=== PATIENT | female | born 1970 | race Caucasian/White ===

== ENCOUNTER 2018-12-25 01:16 | Outpatient (CLI) | payer BC, SELFPAY ==
--- NOTE | 2018-12-25 08:19 | DI.MAMMO_ITS ---
SYMPTOM/DIAGNOSIS: SCREENING, Z12.39 MAMMOGRAMS: Mammograms were interpreted according to the usual protocol including computer analysis with CAD system, tomosynthesis and C view imaging. Comparison is made with prior examinations. Breast density, Category B. No suspicious masses or microcalcifications are seen. There is no definite evidence of malignancy. IMPRESSION: Negative mammogram. Routine screening is recommended. Category 1. MQSA ASSESSMENT OF FINDINGS: Negative. Category 1. Patient will receive a letter notifying them of these results. BI-RADS category B. There are scattered areas of fibroglandular density.
== END 2018-12-25 01:36 ==
PROVIDERS: PCP Family Medicine; Visit Provider Nurse Practitioner
DX: Z12.31 Encounter for screening mammogram for malignant neoplasm of breast (principal)
CPT/HCPCS: 77063; 77067

== ENCOUNTER 2019-04-07 05:59 | Day surgery (SDC) | payer BC, SELFPAY ==
[2019-04-07 06:24] VITALS: BP 114/76; PULSE 84; RESP 16; TEMP 36.4; O2SAT 98
[2019-04-07] MEDS: Lactated Ringers 1,000 ML 80 ML IV (06:30)
--- NOTE | 2019-04-07 06:49 | W.COLOREPORT ---
Date of service: 04/07/19 Time of Service: 07:33 Colonoscopy Report Date of procedure: 04/07/19 Pre-op diagnosis general: Colon Cancer Screening, Family history Post-op diagnosis procedure note: same Procedure: Colonoscopy Surgeon: Linh Luis Anesthesia proc note operative: other (General/ ASA 2/ Sandy Cifuentes, YESENIA) Pathology: none sent Complications: None Disposition: same day Indications: Mrs. Dee is a pleasant 48-year-old female who was seen in the office for a screening colonoscopy. This will be her first colonoscopy. She also has a family history and her grandfather who had colon cancer in his 70s. No colon cancer in a first-degree relative. Risks, benefits and complications have been reviewed. Complications include but are not limited to bleeding, pain, perforation, missed small lesion/polyp, sore throat, aspiration and adverse reaction to the medications. Questions were entertained and answered to their satisfaction and they wished to proceed. No guarantees were given or implied. Prep: Miralax/Dulcolax Procedure Start Time: :33 Procedure End Time: :51 Retraction Time: 12 minutes Findings: Normal colon Procedure Description: After informed consent was obtained the patient was taken to the procedure room and placed in a left decubitous position. Monitors were applied and a time out was done. The patients name, date of , procedure, allergies to medications and metal in their body was reviewed. The patient was then sedated. Once sedated and comfortable a rectal exam was done. External exam was normal. Internal exam revealed a normal sphincter tone and no palpable masses. The scope was then introduced and retro-flexed. No internal hemorrhoids were identified. The scope was then advanced to the cecum without difficulty. The TI and appendiceal orifice were identified. The prep was good. The scope was then slowly retracted over 12 minutes back into the rectum. There were no polyps and no diverticula. The scope was removed and the patient was woken up and taken back to Same day surgery in stable condition. The patient tolerated the procedure well and there were no immediate complications. Follow up: The patient should follow up in 10 years unless they develop changes in bowel habits or other new gastrointestinal complaints.
--- NOTE | 2019-04-07 06:51 | W.PM.DSUDISC ---
Discharge Plan Disposition Patient Disposition: HOME Condition: Good Discharge Details Reason For Visit: Colon Cancer Screening Attending Provider: Linh Luis Primary Care Provider: Alexandro Howe Home Meds and New Rx's Prescriptions: Continued albuterol sulfate [Proventil HFA] 90 mcg/actuation HFA aerosol inhaler 2 puff IH Q6H PRNRF: 0 multivitamin [Multiple Vitamins] 1 EACH tablet 1 ea PO DAILY RF: 0 naproxen 250 MG tablet 250 mg PO DAILY RF: 0 Discontinued polyethylene glycol 3350 17 gram/dose powder 238 g PO ONCE Qty: 238 RF: 0 bisacodyl [Dulcolax (bisacodyl)] 5 mg tablet,delayed release (DR/EC) 5 mg PO ONCE Qty: 4 RF: 0 Discharge Instructions Instructions: Colonoscopy (GEN) Additional Instructions: Findings: Normal colon Follow up: 10 years Please call if you develop: fevers >101.5 Nausea or Vomiting Abdominal pain that is not transient DAY SURGERY UNIT POST COLONOSCOPY INSTRUCTIONS 1. Because there will be medication in your system for the next 24 hours, you may feel a little sleepy. Your coordination will be affected. Therefore: a. Do not drive or operate dangerous equipment for 24 hours. b. Do not drink alcohol beverages for 24 hours (not even beer). c. Plan to go home and rest for the day. 2. Generally there are no restrictions on your activity after a day or so has gone by, but you may feel a bit fatigued for a few days. 3 After you arrive home you may have a light meal and return to a normal diet as you can tolerate it without feeling sick to your stomach. 4. After surgery, you may feel pain or discomfort. This should be only transient, but if it persists please contact your doctor. 5. If there are any questions regarding the findings of your procedure, please feel free to contact your doctor. 6. If you are unable to contact your doctor with a problem, contact the hospital at [phone]. 7. Continue all your regular medications unless directed otherwise. I understand the above instructions and have no questions. Signature of Patient or Responsible Adult Escort Date/Time Name of Responsible Adult Escort Signature of Nurse Date/Time Activity:: Activity as Tolerated Diet:: As Tolerated Discharge Orders Discharge Orders: Discharge Order (Routine); Ordered 04/07/19 Ordered By: Linh Luis DS: Diagnosis Discharge Diagnosis (1) S/P colonoscopy:
[2019-04-07] MEDS: Lidocaine 2% Pres-Free 5 ML VIAL (07:25)
[2019-04-07] MEDS: Glycopyrrolate 0.2 MG/1 ML VIAL (07:30)
[2019-04-07] MEDS: Midazolam 2 MG/2 ML VIAL (07:30)
[2019-04-07] MEDS: PROPOFOL 500 MG/50 ML BTL 30 MG (07:30)
[2019-04-07 08:40] VITALS: BP 123/72; PULSE 70; RESP 16; TEMP 36.2; O2SAT 100
== END 2019-04-07 09:04 | disposition home or self-care (01) ==
PROVIDERS: PCP Family Medicine; Visit Provider Surgery
PROC: 0DJD8ZZ Inspection of Lower Intestinal Tract, Via Natural or Artificial Opening Endoscopic (ICD-10-PCS; CPT 45378; principal; 2019-04-07 07:30)
DX: Z12.11 Encounter for screening for malignant neoplasm of colon (principal); Z80.0 Family history of malignant neoplasm of digestive organs
CPT/HCPCS: 45378; J2250

== ENCOUNTER 2019-06-18 09:02 | Outpatient (REF) | payer BC, SELFPAY ==
[2019-06-18 13:11] LABS: Calculated LDL 145 mg/dL; Cholesterol 220 mg/dL (50-200); Glucose 146 mg/dL (70-100); HDL Cholesterol 48 mg/dL (40-60); Triglyceride 137 mg/dL (30-150)
== END 2019-06-18 09:22 ==
LOC: NCHCN 09:02
PROVIDERS: PCP Family Medicine; Visit Provider Nurse Practitioner
DX: R73.09 Other abnormal glucose (principal)
CPT/HCPCS: 80061; 82947

== ENCOUNTER 2021-02-27 18:15 | Emergency (ER) | payer BC, SELFPAY ==
--- NOTE | 2021-02-27 18:15 | DI.RAD_ITS ---
Exam(s) XR FOOT RT COMPLETE EXAM: XR FOOT RT COMPLETE CLINICAL HISTORY: Crush injury R/O Fracture. TECHNIQUE: 2D digital imaging was performed. COMPARISON: No exams were available for comparison FINDINGS: BONES: No acute fracture is present. No bony destructive lesion is seen. JOINTS: No dislocation present. SOFT TISSUE: Swelling over the metatarsal region. IMPRESSION: No evidence of fracture. DATA REPOSITORY: RADIATION DOSE DELIVERED:
[2021-02-27 18:19] VITALS: BP 148/84; PULSE 76; TEMP 36.9; O2SAT 96
--- NOTE | 2021-02-27 18:26 | W.ED.GENAD ---
Discharge Plan Disposition Patient Disposition: HOME Condition: Stable Discharge Details Clinical Impression: Crush injury of right foot Primary Care Provider: Alexandro Howe ED Provider: Genny Candelaria Home Meds and New Rx's Prescriptions: No Action albuterol sulfate [Proventil HFA] 90 mcg/actuation HFA aerosol inhaler 2 puff IH Q6H PRNRF: 0 multivitamin [Multiple Vitamins] 1 EACH tablet 1 ea PO DAILY RF: 0 naproxen 250 MG tablet 250 mg PO DAILY RF: 0 Discharge Instructions Instructions: Crush Injury (ED) Additional Instructions: At this time x-ray shows no obvious fracture. However, they do recommend repeat x-ray in 7 to 10 days to completely rule this out. In the meantime rest, ice, compression, elevation. Wear the walking boot for comfort. Please take Tylenol or Ibuprofen with food every 4-6 hours as needed for pain and swelling. Please follow-up with orthopedic [facility] clinic in 7 to 10 days. Referrals: Seth Schmitz MD [ [facility] STAFF PHYSICIAN] - Alexandro Howe [Primary Care Provider] - Discharge Data Discharge Date/Time-TO BE ENTERED AT DEPARTURE: 02/27/21 19:50 Medical Decision Making 50-year-old female presents to the ER status post dropping a approximately 15 pound metal railroad tie onto her foot 1 hour prior to arrival. She has soft tissue swelling noted to the dorsum of her right foot. A small superficial abrasion noted also to the top of her foot. Distal cap refill less than 2 seconds sensation movement intact. No other signs of obvious deformity. Imaging protocol: XR Right foot. Views: 3 or more views. COMPARISON: No relevant prior studies available. FINDINGS: Bones/joints: Normal, without evidence of acute osseous injury. Incidental note is made of possible small sclerotic bone island within the base of the 4th middle phalanx. Soft tissues: There is soft tissue edema overlying the midfoot as seen on lateral view. IMPRESSION: 1. No acute osseous injury. Should patient's symptoms persist, recommend follow-up imaging in 7- 10 days to evaluate for possible occult fracture. 2. Soft tissue edema overlying the metatarsal row as seen on lateral view. Thank you for allowing us to participate in the care of your patient. Dictated and Authenticated by: Fabrizio Gomes MD Patient was placed in a walking boot wound care performed by staff home therapy rn. Discussed rest ice compression elevation and follow-up with orthopedics, discussed return instructions including to return for any problems with circulation pain not relieved by Tylenol or ibuprofen or any concerns. Patient verbalized understanding HPI General Mode of arrival: wheelchair. Date/Time Provider Initiated Documentation: 02/27/21 18:17. Limitations to Documentation: no limitations. Information obtained by: patient. HPI Narrative: 50-year-old female presents to the ER status post dropping a approximately 15 pound metal railroad tie onto her foot 1 hour prior to arrival. She has soft tissue swelling noted to the dorsum of her right foot. A small superficial abrasion noted also to the top of her foot. Distal cap refill less than 2 seconds sensation movement intact. No other signs of obvious deformity. Related Data Home Medications Medication Instructions Recorded Confirmed multivitamin [Multiple Vitamins] 1 ea PO DAILY 02/05/13 02/27/21 naproxen 250 mg PO DAILY tab-cap 02/05/13 02/27/21 albuterol sulfate 90 mcg/actuation 2 puff IH Q6H PRN gm 01/10/19 02/27/21 aerosol inhaler Allergies Allergy/AdvReac Type Severity Reaction Status Date / Time kiwi Allergy Unknown throat Unverified 02/27/21 18:22 gets scratchy diphenhydramine HCl AdvReac Severe Visual Unverified 02/27/21 18:22 [From Benadryl] Disturbances phenytoin sodium AdvReac Intermediate Nausea Unverified 02/27/21 18:22 [From Dilantin] phenytoin sodium extended AdvReac Intermediate Nausea Unverified 02/27/21 18:22 [From Dilantin] SEASONAL ALLERGENS Allergy Mild Wheezing Uncoded 02/27/21 18:22 General Stated Complaint: Orthopedic ALE: 4 Review of Systems All systems reviewed & are unremarkable except as noted in HPI and below Musculoskeletal Musculoskeletal: Reports as per HPI, Reports abnormal gait (Slight limp pain to foot with walking) and Reports joint swelling (Right foot swelling and abrasion noted to the dorsum. Reports pain with) Neurologic Neurologic: Reports abnormal gait (Slight limp pain to foot with walking) [facility] Medical History (Updated 02/27/21 @ 19:18 by Genny Candelaria) Asthma At risk for sleep apnea GERD (gastroesophageal reflux disease) Migraine Obesity Scoliosis Syncope last fainting spell was 3 monthes ago, gets buzzing sound as warning. Surgical History (Updated 04/07/19 @ 06:51 by Linh Luis MD) History of section History of colonoscopy S/P colonoscopy (~04/07/19) Family History Paternal Grandfather Colon cancer Other Cancer Social History (Updated 03/17/19 @ 18:17 by MADISON Lucio) Smoking/Tobacco Use Status: Former Tobacco Use Quit Date: 03/27/91 Smoking risk assessment performed?: Yes Alcohol Intake: current Alcohol Intake frequency: a few times a week Alcohol type: wine Drug use: Never Substance use type: does not use Do you feel safe at home: Yes Do you feel safe in your relationship?: Yes Course Vital Signs Vital signs: Vital Signs Temperature 36.9 C 02/27/21 18:19 Pulse 76 02/27/21 18:19 Blood Pressure 148/84 H 02/27/21 18:19 Pulse Oximetry 96 02/27/21 18:19 Temperature 36.9 C 02/27/21 18:19 Temperature Source Temporal Artery Scan 02/27/21 18:19 Pulse 76 02/27/21 18:19 Respiratory Effort Non-Labored 02/27/21 18:21 Blood Pressure 148/84 H 02/27/21 18:19 Blood Pressure Position Sitting 02/27/21 18:19 Pulse Oximetry 96 02/27/21 18:19 Oxygen Delivery Method Room Air 02/27/21 18:19 Oxygen Flow Rate 0 02/27/21 18:19 Pain Level 4 02/27/21 18:23
[2021-02-27] MEDS: Ibuprofen 800 MG TAB PO (18:41)
--- NOTE | 2021-02-27 19:10 | NUR.NOTE ---
Assumed care of pt. Report from [place]. Right foot wound cleansed with hibiclense and water. bacitracin and dsd applied.
--- NOTE | 2021-02-27 19:11 | DI.VRAD_ITS ---
PROCEDURE INFORMATION: Exam: XR Right Foot Exam date and time: 02/27/2021 6:27 PM Age: 50 years old Clinical indication: Injury or trauma; Other: Heavy object landed on foot; Crushing; Right; Injury date: 02/27/21; Injury details: Crush injury, R/O FX TECHNIQUE: Imaging protocol: XR Right foot. Views: 3 or more views. COMPARISON: No relevant prior studies available. FINDINGS: Bones/joints: Normal, without evidence of acute osseous injury. Incidental note is made of possible small sclerotic bone island within the base of the 4th middle phalanx. Soft tissues: There is soft tissue edema overlying the midfoot as seen on lateral view. IMPRESSION: 1. No acute osseous injury. Should patient's symptoms persist, recommend follow-up imaging in 7-10 days to evaluate for possible occult fracture. 2. Soft tissue edema overlying the metatarsal row as seen on lateral view. Dictated and Authenticated by: Fabrizio Gomes MD. Ordering:CHLOE Royal MD
== END 2021-02-27 19:50 | disposition home or self-care (01) ==
PROVIDERS: Emergency Provider Registered Nurse Emergency; PCP Family Medicine
DX: S97.81XA Crushing injury of right foot, initial encounter (principal); W20.8XXA Other cause of strike by thrown, projected or falling object, initial encounter
CPT/HCPCS: 29515; 99283; 73630

== ENCOUNTER 2021-10-26 01:06 | Outpatient (CLI) | payer BC, SELFPAY ==
--- NOTE | 2021-10-26 | DI.MAMMO_ITS ---
Exam(s) MAMMO SCREENING EXAM: MAMMO SCREENING CLINICAL HISTORY: SCREENING, Z12.39 TECHNIQUE: Mammograms were interpreted according to the usual protocol including computer analysis w Prolify CAD system, tomosynthesis and C-view imaging. COMPARISON: FINDINGS: The breasts are of moderate density with fairly symmetrical distribution of fibroglandular tissue. N o dominant mass or clumped microcalcification is identified in either breast. The current examinatio n is compared with previous examinations including December 2018 and there has been no gross interval walters ge in appearance in comparison with the prior studies. IMPRESSION: No specific evidence of malignancy at this time. Routine screening examinations are suggested at yea rly intervals in this age group according to the ACS ACR guidelines. BI-RADS Category 1 - Negative Breast Density - Category B - Scattered areas of fibroglandular density
== END 2021-10-26 01:26 ==
PROVIDERS: PCP Family Medicine; Visit Provider Nurse Practitioner
DX: Z12.31 Encounter for screening mammogram for malignant neoplasm of breast (principal)
CPT/HCPCS: 77063; 77067

== ENCOUNTER 2022-08-01 03:49 | Outpatient (CLI) | payer OTHER, SELFPAY ==
[2022-08-01] MEDS: Albuterol HFA 18 GM 200 PUFF INH IH (13:44)
[2022-08-01] MEDS: Inhaler, Assist Device 1 EACH MC (13:45)
--- NOTE | 2022-08-01 16:28 | W.PFT ---
Date of service: 08/01/22 Time of Service: 12:56 Pulmonary Function Test Result Requesting Provider Judith Valdez Indications: Asthma Interpretation Spirometry: There is no airflow limitation. There is no significant bronchodilator response. Lung Volumes: Normal lung volumes Diffusion Capacity: Normal diffusion Airway Pressure: Normal airways resistance. Impression Normal pulmonary function testing Clinical Correlation therefore is recommended.
== END 2022-08-01 03:50 | disposition home or self-care (01) ==
LOC: RT 03:49
PROVIDERS: PCP Family Medicine; Visit Provider Nurse Practitioner Family
DX: J45.21 Mild intermittent asthma with (acute) exacerbation (principal)
CPT/HCPCS: 94060; 94726; 94729

== ENCOUNTER 2022-08-09 14:23 | Outpatient (REF) | payer OTHER, SELFPAY ==
[2022-08-09 15:09] LABS: Hemoglobin A1C 6.2 % (<5.7)
[2022-08-09 15:10] LABS: Anion Gap 8.4 mmol/L (3-11); BUN 22 mg/dL (7-18); CO2 28.6 mmol/L (21.0-32.0); CREATININE 0.7 mg/dL (0.55-1.02); Calcium 9.2 mg/dL (8.5-10.1); Calculated LDL 150 mg/dL (<100); Chloride 103 mmol/L (98-107); Cholesterol 255 mg/dL (<200); Estimated GFR 103.35 (mL/min/1.73m2); Glucose 118 mg/dL (74-106); HDL Cholesterol 49 mg/dL (40-60); Potassium 4.4 mmol/L (3.5-5.1); Sodium 140 mmol/L (136-145); Triglyceride 284 mg/dL (<150)
== END 2022-08-09 14:24 | disposition home or self-care (01) ==
LOC: NCHCN 14:23
PROVIDERS: PCP Family Medicine; Visit Provider Nurse Practitioner Family
DX: R73.03 Prediabetes (principal); J45.20 Mild intermittent asthma, uncomplicated; Z13.89 Encounter for screening for other disorder; Z86.69 Personal history of other diseases of the nervous system and sense organs
CPT/HCPCS: 80048; 80061; 83036

== ENCOUNTER 2023-09-26 17:35 | Outpatient (REF) | payer OTHER, SELFPAY ==
[2023-09-26 19:54] LABS: ALT 122 U/L (14-59); AST 55 U/L (15-37); Alkaline Phosphatase 91 U/L (46-116); Anion Gap 7.3 mmol/L (3-11); BUN 15 mg/dL (7-18); Bilirubin, Total 0.4 mg/dL (0.2-1.0); CO2 29.7 mmol/L (21.0-32.0); CREATININE 0.9 mg/dL (0.55-1.02); Calcium 9.7 mg/dL (8.5-10.1); Calculated LDL 157 mg/dL (<100); Chloride 102 mmol/L (98-107); Cholesterol 233 mg/dL (<200); Estimated GFR 75.97 (mL/min/1.73m2); Glucose 149 mg/dL (74-106); HDL Cholesterol 53 mg/dL (40-60); Potassium 4.2 mmol/L (3.5-5.1); Sodium 139 mmol/L (136-145); Total Protein 8.4 g/dL (6.4-8.2); Triglyceride 117 mg/dL (<150)
[2023-09-26 19:55] LABS: Hemoglobin A1C 6.1 % (<5.7)
== END 2023-09-26 17:36 | disposition home or self-care (01) ==
LOC: NCHCN 17:35
PROVIDERS: PCP Family Medicine; Visit Provider Nurse Practitioner Family
DX: E78.5 Hyperlipidemia, unspecified (principal); R73.03 Prediabetes
CPT/HCPCS: 80053; 80061; 83036

== ENCOUNTER → 2023-10-15 04:24 | Outpatient (CLI) | payer OTHER, SELFPAY ==
--- NOTE | 2023-10-15 12:34 | DI.MAMMO_ITS ---
Exam(s) MAMMO SCREENING EXAM: MAMMO SCREENING CLINICAL HISTORY: SCREENING,Z12.31 TECHNIQUE: Bilateral full field digital CC and MLO mammographic images were obtained with 3D tomosyn thesis and utilizing computer aided detection (CAD). COMPARISON: Available for comparison. FINDINGS: Masses/Architectural Distortion: None seen. Microcalcifications: No suspicious pleomorphic-type are seen. Skin Thickening/Nipple Retraction: None. IMPRESSION: 1. No significant interval change with no specific features of malignancy noted. 2. Unless there is more urgent need, screening mammography is recommended, as per [place] guidelines. BI-RADS Category 1 - Negative Breast Density - Category B - Scattered areas of fibroglandular density Breast density category C or D implies that the patient has dense breast tissue. Dense breast tissue is very common and is not abnormal but dense breast tissue can make it harder to find cancer on a ma mmogram. Also, dense breast tissue may increase their breast cancer risk. This information about the result of the mammogram report was provided to the patient to raise their awareness. Use this report when you speak with the patient about their risks for breast cancer, which includes their family hist ory. At that time, you may recommend for more screening tests (Ultrasound or MRI) as they might be us eful based on their risk. A negative radiographic report should not delay biopsy if a dominant or clinically suspicious mass is present. Up to ten percent of cancers are not identified on mammography. A negative report may reinforce clinical impression. Adenosis and dense breasts may obscure an underlying neoplasm. False positive reports average 6 to 10%. Patient will receive a letter notifying them of these results.
== END ==
PROVIDERS: PCP Family Medicine; Visit Provider Nurse Practitioner Family
DX: Z12.31 Encounter for screening mammogram for malignant neoplasm of breast (principal)
CPT/HCPCS: 77063; 77067

== ENCOUNTER 2024-08-02 16:19 | Emergency (ER) | payer OTHER, SELFPAY ==
[2024-08-02] VITALS (26 sets, daily range): BP systolic 112–168; BP diastolic 59–115; PULSE 86–115; RESP 18; TEMP 36.8; O2SAT 92–98
[2024-08-02] MEDS: FAMOTIDINE 20 MG/50 ML BAG 204 MG (16:32)
[2024-08-02] MEDS: Dexamethasone 10 MG/ML VIAL (16:32)
[2024-08-02] MEDS: hydrOXYzine 25 MG/ML VIAL IM (16:36)
--- NOTE | 2024-08-02 17:30 | DI.RAD_ITS ---
Exam(s) XR CHEST 2V PA LATERAL EXAM: XR CHEST 2V PA LATERAL CLINICAL HISTORY: persistent cough TECHNIQUE: 2D digital imaging was performed. Two views. COMPARISON: No exams were available for comparison FINDINGS: HEART: Normal size. Aorta: Not dilated. PULMONARY VASCULATURE: Normal. MEDIASTINUM: Unremarkable. LUNGS: Clear. PLEURAL SPACE: No pleural effusion or pneumothorax. BONE:Unremarkable for age. SOFT TISSUES: Unremarkable. IMPRESSION: No acute abnormality. DATA REPOSITORY: RADIATION DOSE DELIVERED:
[2024-08-02] MEDS: hydrOXYzine HCL 25 MG TAB PO (18:38)
[2024-08-02] MEDS: EPINEPHrine 0.3 MG KIT IM (18:38)
--- NOTE | 2024-08-02 20:44 | ED.GENADUL_ITS ---
Discharge Plan Disposition Patient Disposition: Home Condition: Stable Discharge Details Clinical Impression: Allergic reaction, Chronic cough, Asthma Primary Care Provider: JOSUE NASH ED Provider: Guera Haas Home Meds and New Rx's Prescriptions: New Asmanex HFA 100 mcg/actuation HFA aerosol inhaler 2 puff inhalation BID Qty: 13 2RF hydroxyzine HCl 25 mg tablet 25 mg PO BID PRNQty: 10 0RF prednisone 20 mg tablet 40 mg PO ONCE Qty: 10 0RF albuterol sulfate [Ventolin HFA] 90 mcg/actuation HFA aerosol inhaler 2 puff inhalation Q6H PRNQty: 8.5 2RF Continued albuterol sulfate [Proventil HFA] 90 mcg/actuation HFA aerosol inhaler 2 puff IH Q6H PRN multivitamin [Multiple Vitamins] 1 EACH tablet 1 ea PO DAILY naproxen 250 MG tablet 250 mg PO DAILY Discharge Instructions Instructions: How to use an epinephrine autoinjector, Anaphylaxis - Discharge instructions Additional Instructions: You are seen today for an allergic reaction, you are likely allergic to shellfish Continue on the prednisone, take this tomorrow Continue on the hydroxyzine you may take this twice a day as needed for rash and itch, this will likely make you tired and it is in the same class as Benadryl I am also giving you meds for asthma moderate persistent, please use your new albuterol inhaler 2 puffs every 4-6 hours with spacer Use your new Flovent 2 puffs twice a day with spacer Take the steroid for the next 5 days I placed a referral to pulmonology for follow-up Please return earlier should you have new or worsening complaints Refer to anaphylaxis information, I do not feel like you are having anaphylaxis but should you develop difficulty swallowing shortness of breath associated with nausea and vomiting, please use your EpiPen immediately and call 911 Referrals: JOSUE NASH, [employer] [Primary Care Provider] - 2 days Discharge Data Discharge Date/Time-TO BE ENTERED AT DEPARTURE: 08/02/24 18:39 HPI General Date/Time Provider Initiated Documentation: 08/02/24 16:24 . HPI Narrative: This 53-year-old female presents with urticarial rash and lip swelling that started after having shellfish. Patient has had prior testing for shellfish and has been told that she is not allergic to this seafood. Tonight she had shellfish and approximately 10 minutes later developed a diffuse urticarial rash with itching in her throat and lip swelling. She denies any difficulty swallowing or shortness of breath. She denies any nausea or vomiting. She denies any prior history of anaphylaxis in the past. She reports having scallops, fabrice , and romansh fries. Related Data Home Medications ?Medication ?Instructions ?Recorded ?Confirmed multivitamin (Multiple Vitamins 1 ea PO DAILY 02/05/13 08/02/24 tablet) naproxen 250 mg tablet 250 mg PO DAILY 02/05/13 08/02/24 albuterol sulfate 90 mcg/actuation 2 puff inhalation Q6H PRN 01/10/19 08/02/24 aerosol inhaler (Proventil HFA) albuterol sulfate 90 mcg/actuation 2 puff inhalation Q6H PRN #8.5 08/02/24 aerosol inhaler (Ventolin HFA) grams hydroxyzine HCl 25 mg tablet 25 mg PO BID PRN #10 tabs 08/02/24 mometasone 100 mcg/actuation HFA 2 puff inhalation BID #13 grams 08/02/24 aerosol inhaler (Asmanex HFA) prednisone 20 mg tablet 40 mg (2 x 20 mg) PO ONCE #10 tabs 08/02/24 Previous Rx's ?Medication ?Instructions ?Recorded albuterol sulfate 90 mcg/actuation 2 puff inhalation Q6H PRN #8.5 08/02/24 aerosol inhaler (Ventolin HFA) grams hydroxyzine HCl 25 mg tablet 25 mg PO BID PRN #10 tabs 08/02/24 mometasone 100 mcg/actuation HFA 2 puff inhalation BID #13 grams 08/02/24 aerosol inhaler (Asmanex HFA) prednisone 20 mg tablet 40 mg (2 x 20 mg) PO ONCE #10 tabs 08/02/24 Allergies Allergy/AdvReac Type Severity Reaction Status Date / Time scallops Allergy Severe Hives Verified 08/02/24 16:33 kiwi Allergy Unknown throat Unverified 08/02/24 16:33 gets scratchy diphenhydramine HCl (From AdvReac Severe Visual Unverified 08/02/24 16:33 Benadryl) Disturbances phenytoin sodium (From AdvReac Intermediate Nausea Unverified 08/02/24 16:33 Dilantin) phenytoin sodium extended AdvReac Intermediate Nausea Unverified 08/02/24 16:33 (From Dilantin) SEASONAL ALLERGENS Allergy Mild Wheezing Uncoded 08/02/24 16:33 General Stated Complaint: Allergic ALE: 2 Exam Narrative Exam Narrative: Alert and oriented 53-year-old female with diffuse urticarial rash, alert and oriented, oropharynx patent, no intraoral lesions, uvula midline, normal phonation, no stridor, lungs clear to auscultation, mild swelling to lips, cardiac rate rhythm regular, no abdominal tenderness, alert and oriented x 4 Course Vital Signs Vital signs: Vital Signs Temperature 36.8 C 08/02/24 16:21 Pulse 115 H 08/02/24 16:21 Blood Pressure 160/115 H 08/02/24 16:21 Pulse Oximetry 98 08/02/24 16:21 Temperature 36.8 C 08/02/24 16:21 Temperature Source Oral 08/02/24 16:21 Pulse 91 H 08/02/24 18:39 Respiratory Rate 18 08/02/24 18:39 Respiratory Effort Normal, Non-Labored 08/02/24 16:35 Respiratory Pattern Normal 08/02/24 16:35 Blood Pressure 144/90 H 08/02/24 18:39 Blood Pressure Mean 108 08/02/24 18:31 Pulse Oximetry 92 08/02/24 18:39 Oxygen Delivery Method Room Air 08/02/24 17:56 Oxygen Flow Rate 0 08/02/24 17:56 Medical Decision Making 53-year-old female presenting with likely allergic reaction to shellfish. Patient does not meet criteria for anaphylaxis at this time, will treat with hydroxyzine as patient has Benadryl allergy, Pepcid, and Decadron. Patient is feeling marked improvement and looks quite well rash almost completely resolved at time of reassessment. She tells me that incidentally she has had a cough for approximately 1 year which is gradually worsening she does have a history of asthma was sick in August has had persistent symptoms since that time. She has an old Flovent inhaler and albuterol inhaler for which she has been using without relief in her symptoms. She has not seen a vp [employer] before for patient. She denies any fever or chills. I did order chest x-ray after a long discussion with him and this does not show evidence of acute abnormality per radiology interpretation my review. I will place patient on Asmanex and albuterol at home. I will also give her prednisone prescription both for asthma exacerbation in addition to allergic reaction. Hydroxyzine prescription was sent to her pharmacy which she will continue at home in addition to Claritin as needed. At this time patient has normal phonation, no stridor, stabilized vitals, and no obvious lip swelling, maintaining secretions and no evidence clinically of anaphylaxis. I did will give patient an EpiPen for home, instructions reviewed with patient. Return precautions reviewed and patient expressed understanding Quality:SDOH Health Related Social Needs: No Data to Display PFSH All Active Problems (Updated 08/02/24 @ 18:23 by MADISON Martel) Asthma (Chronic) Chronic cough (Acute) Allergic reaction (Acute) Crush injury of right foot (Acute) Medical History (Updated 08/02/24 @ 18:23 by MADISON Martel) Migraine Scoliosis GERD (gastroesophageal reflux disease) Obesity Asthma At risk for sleep apnea Syncope last fainting spell was 3 monthes ago, gets buzzing sound as warning. Surgical History (Updated 04/07/19 @ 06:51 by Linh Luis MD) S/P colonoscopy (~04/07/19) History of colonoscopy History of section Family History Paternal Grandfather Colon cancer Other Cancer Social History (Updated 03/17/19 @ 18:17 by MADISON Lucio) Smoking/Tobacco Use Status: Former Tobacco Use Quit Date: 03/27/91 Smoking risk assessment performed?: Yes Alcohol Intake: current Alcohol Intake frequency: a few times a week Alcohol type: wine Drug use: Never Substance use type: does not use Do you feel safe at home: Yes Do you feel safe in your relationship?: Yes PAWSS Have you Been Recently Intoxicated or Drunk Within the Last 30 days?: No Have you Ever Experienced Previous Episodes of Alcohol Withdrawal?: No Have you ever Experienced Withdrawal Seizures?: No Have you ever Experienced Delirium Tremens(DT)s?: No Have you ever undergone Alcohol Rehabilitation Treatment (i.e, inpt ot outpatient treatment programs)?: No Have you ever Experienced Blackouts?: No Have you ever Combined Alcohol with other Downers within the last 90 days?: No Have you ever Combined Alcohol with any other Substance of Abuse during the last 90 days?: No Positive Blood Alcohol level on Presentation? [PCS.BAL]: No Evidence of Increased Autonomic Activity (i.e. HR>120, tremor, sweating, agitation, nausea)?: No Result: 0
== END 2024-08-02 18:39 | disposition home or self-care (01) ==
PROVIDERS: Emergency Provider Physician Assistant; PCP Nurse Practitioner Family
DX: T78.1XXA Other adverse food reactions, not elsewhere classified, initial encounter (principal); L29.9 Pruritus, unspecified; L50.9 Urticaria, unspecified; X58.XXXA Exposure to other specified factors, initial encounter
CPT/HCPCS: 96372; 99284; 71046; 99283; J0171; J1100; J3410

== ENCOUNTER 2025-01-01 00:48 | Outpatient (CLI) | payer OTHER, SELFPAY ==
--- NOTE | 2025-01-01 | DI.MAMMO_ITS ---
Exam(s) MAMMO SCREENING EXAM: MAMMO SCREENING CLINICAL HISTORY: Z12.31 Screening. TECHNIQUE: Bilateral full field digital CC and MLO mammographic images were obtained with 3D tomosyn thesis and utilizing computer aided detection (CAD). COMPARISON: Prior mammograms were reviewed. FINDINGS: There has been no significant change in the appearance and distribution of the fibroglandular tissue. There are no new spiculated masses nor malignant appearing microcalcification groups. There is no significant architectural distortion nor skin thickening-retraction. IMPRESSION: No radiographic evidence of malignancy. BI-RADS Category 1 - Negative Breast Density - Category B - There are scattered areas of fibroglandular density. Breast density Category C or D implies that the patient has dense breast tissue. Dense breast tissue can make it harder to find cancer on a mammogram. Dense breast tissue is also associated with an incr eased risk of breast cancer. This information about the result of the mammogram report was provided to the patient to raise their awareness. Use this report when you speak with the patient about their risks for breast cancer, which includes their family history. At that time, you may recommend additional screening tests (Ultrasoun d or MRI) as these tests may add significant information. A negative radiographic report should not delay biopsy if a dominant or clinically suspicious mass is present. Up to ten percent of cancers are not identified on mammography. A negative report may reinforce clinical impression. Adenosis and dense breasts may obscure an underlying neoplasm. False positive reports average 6 to 10%. Patient will receive a letter notifying them of these results.
== END 2025-01-01 01:08 ==
LOC: DI 00:48
PROVIDERS: PCP Nurse Practitioner Family; Visit Provider Nurse Practitioner Family
DX: Z12.31 Encounter for screening mammogram for malignant neoplasm of breast (principal); R92.323 Mammographic fibroglandular density, bilateral breasts
CPT/HCPCS: 77063; 77067